=== PATIENT | male | born 1970 | race Caucasian/White ===

== ENCOUNTER 2022-05-26 14:54 | Emergency (ER) | payer MEDICAID, SELFPAY ==
[2022-05-26 15:10] VITALS: BP 176/106; PULSE 91; RESP 24; TEMP 36.8; O2SAT 99; BMI 25.8
--- NOTE | 2022-05-26 15:11 | ED_ITS ---
HPI - General Adult General: Chief complaint: General Medical Stated complaint: DELIRIUM TREMORS/ SPIDER BITE Time Seen by Provider: 05/26/22 15:10 History of Present Illness: Mr. Holland is a 51-year-old gentleman with unclear past medical history presents to the emergency department due to generalized medical complaint. He endorses 4 days ago taking a preloaded combination shot of drugs and essentially since that time describes having a bad narcotic trip . Additionally he notes a painful leg abscess of unclear timing. Overall course of symptoms has persisted. History is otherwise limited by patient's current level of distress and mental state. Onset (ago): day(s) Severity: severe Pain Consistency: constant Review of Systems General: Reports: 10 or more systems reviewed and unremarkable except in HPI and below PFSH ED PFSH: Medical History (Updated 06/07/22 @ 21:46 by Sumanth Iqbal MD) No significant past medical history Surgical History (Updated 06/07/22 @ 21:46 by Sumanth Iqbal MD) No significant past surgical history Social History (Updated 06/07/22 @ 21:46 by Sumanth Iqbal MD) Substance/Drug Use: current Physical Exam 2 Const: COMMON NORMALS: alert GENERAL APPEARANCE: cooperative, well developed, in distress (uncomfortable, difficulty remaining still) and anxious HENMT: COMMON NORMALS: normocephalic and atraumatic HEAD & SCALP: normocephalic and atraumatic Eye: COMMON NORMALS: conjunctivae normal CONJUNCTIVA: Yes conjunctivae normal SCLERA: sclerae normal Neck/C-Spine: COMMON NORMALS: supple GENERAL: Yes trachea midline Resp: COMMON NORMALS: normal respiratory effort and clear to auscultation bilaterally EFFORT & INSPECTION: Yes able to speak in complete sentences AUSCULTATION: clear to auscultation bilaterally Cardio: COMMON NORMALS: regular rate and regular rhythm RATE: regular rate RHYTHM: regular rhythm GI: COMMON NORMALS: Soft to palpation PALPATION: Yes Soft to palpation and No Tenderness to palpation present (GI) Extremity: NARRATIVE EXTREMITY EXAM: Prior surgical scars left lower extremity, distal CMS intact. GENERAL: Yes normal exam except as noted and No edema Neuro: COMMON NORMALS: moves all extremities SENSORIUM/ORIENTATION: Yes alert and No Orientation impaired Psych: COMMON NORMALS: denies homicidal ideation and denies suicidal ideation ACTIVITY/MOTOR BEHAVIOR: Yes psychomotor agitation and Yes hyperactivity Skin: NARRATIVE SKIN EXAM: Bilateral 2 cm isolation appearing to be erythematous and tender to palpation without significant fluctuance. Course ED course: - Patient was seen and evaluated by me at bedside - Patient placed on cardiac monitors, IV access obtained - Initial evaluation notable for exam as above - Labs and xrays personally interpreted by me. EKG shows a sinus rhythm, no STEMI. -Versed and antipsychotic ordered. - Labs notable for leukocytosis, normal hemoglobin. Metabolic panel without acute derangement to explain symptoms. Alcohol, salicylate, acetaminophen level negative. - Imaging notable for prior surgical clips, patient has known history of fasciotomy/multiple leg surgeries. No acute bony abnormality. [id number]-[id number] ultrasound performed with small phlegmon appearance, no appreciable large drainable fluid collection. - Upon serial reexamination after treatment the patient was markedly improved. Antibiotic ordered and patient's gabapentin ordered. - Based on patient history, evaluation, and testing as interpreted the most likely cause of the patient's condition is acute drug reaction and skin lesion - The results of ED evaluation were discussed with the patient including prescriptions and/or symptomatic cares (if applicable) including appropriate and responsible use, followup plan, and return precautions. The patient verbalized understanding and felt safe for discharge. - Patient discharged in satisfactory condition. Note: Click bubbles or prepopulated chappell in note writing are used for assistance with data collection and billing and are inherently more limited than narrative and other text portions of this note. Please use narrative for additional clinical history and defer to narrative/free test for any case of contradictory information. If information appears in only free text or click bubble it should be considered present or absent as reported. Please contact note personal lines underwriter for clarifications of clinical information or contradictory information. MDM is a brief summary, contradictory or erroneous seeming information should be clarified and full note should be reviewed. Vital Signs: Vital signs: Vital Signs Temperature 98.3 F 05/26/22 15:10 Pulse Rate 58 L 05/26/22 18:16 Respiratory Rate 18 05/26/22 18:16 Blood Pressure 178/109 05/26/22 18:16 Pulse Oximetry 98 05/26/22 18:16 Oxygen Delivery Nh thod 05/26/22 16:27 MDM - General Adult Medical Decision Making 51-year-old male presenting with generalized symptoms in the context of drug use in addition to a concern over skin finding. Patient markedly improved with Versed and Haldol. No drainable fluid collection on [id number]-[id number] ultrasound. Satisfactory for outpatient management. Medical Records I reviewed the patient's medical records. Lab Data I reviewed the patient's lab results. : 05/26/22 15:42 05/26/22 15:42 Radiology Impressions Femur X-Ray 05/26/22 16:17 IMPRESSION: Multiple small linear metallic foreign bodies noted along the lateral aspect of the proximal thigh measuring up to 1 cm with soft tissue swelling in this region. Laboratory Results WBC 11.7 10^3/uL (4.0-10.0) H 05/26/22 15:42 RBC 4.56 10^6/uL (4.1-5.3) 05/26/22 15:42 Hgb 14.0 g/dL (11.7-16.6) 05/26/22 15:42 Hct 40.4 % (42.0-52.0) L 05/26/22 15:42 MCV 88.6 fl (80-94) 05/26/22 15:42 MCH 30.7 pg (28.0-34.0) 05/26/22 15:42 MCHC 34.7 g/dL (30.0-36.0) 05/26/22 15:42 RDW 13.5 % (12.1-15.1) 05/26/22 15:42 Plt Count 314 10^3/cmm (130-400) 05/26/22 15:42 MPV 9.9 fL (7.4-10.4) 05/26/22 15:42 Neut % (Auto) 68.6 % 05/26/22 15:42 Lymph % (Auto) 19.9 % 05/26/22 15:42 Duchesne % (Auto) 10.1 % 05/26/22 15:42 Eos % (Auto) 0.3 % 05/26/22 15:42 Baso % (Auto) 0.5 % 05/26/22 15:42 Neut # (Auto) 7.99 10^3/uL (1.8-7.7) H 05/26/22 15:42 Lymph # (Auto) 2.3 10^3/uL (0.8-4.8) 05/26/22 15:42 Duchesne # (Auto) 1.2 10^3/uL (0.2-0.9) H 05/26/22 15:42 Eos # (Auto) 0.0 10^3/uL (0.0-0.8) 05/26/22 15:42 Baso # (Auto) 0.1 10^3/uL (0.0-0.1) 05/26/22 15:42 Nucleated RBC % (auto) 0 % 05/26/22 15:42 Nucleated RBCs # 0.0 /100WBC 05/26/22 15:42 Sodium 139 mmol/L (136-145) 05/26/22 15:42 Potassium 3.5 mmol/L (3.5-5.1) 05/26/22 15:42 Chloride 102 mmol/L (98-107) 05/26/22 15:42 Carbon Dioxide 22 mmol/L (22-29) 05/26/22 15:42 Anion Gap 18.5 (5-19) 05/26/22 15:42 BUN 7 mg/dL (6-20) 05/26/22 15:42 Creatinine 0.8 mg/dL (0.7-1.2) 05/26/22 15:42 GFR Calculation 101.5 mL/min (90-130) 05/26/22 15:42 Glucose 93 mg/dL (65-115) 05/26/22 15:42 Calculated Osmolality 286 mOsm/kg (285-295) 05/26/22 15:42 Calcium 9.7 mg/dL (8.5-10.5) 05/26/22 15:42 Total Bilirubin 0.3 mg/dL (0.15-1.2) 05/26/22 15:42 AST 35 U/L (0-40) 05/26/22 15:42 ALT 61 U/L (0-41) H 05/26/22 15:42 Alkaline Phosphatase 96 U/L (40-130) 05/26/22 15:42 Total Protein 7.3 g/dL (6.6-8.7) 05/26/22 15:42 Albumin 4.5 g/dL (3.5-5.2) 05/26/22 15:42 Globulin 2.8 g/dL (1.3-4.6) 05/26/22 15:42 TSH 2.02 uIU/mL (0.27-4.20) 05/26/22 15:42 Salicylates < 0.3 mg/dL (3-10) L 05/26/22 15:42 Urine Opiates Screen Positive ng/mL (Negative) H 05/26/22 16:28 Acetaminophen < 5.0 ug/mL (10-30) L 05/26/22 15:42 Ur Barbiturates Screen Negative ng/mL (Negative) 05/26/22 16:28 Ur Phencyclidine Scrn Negative ng/mL (Negative) 05/26/22 16:28 Ur Amphetamines Screen Negative ng/mL (Negative) 05/26/22 16:28 U Benzodiazepines Scrn Positive ng/mL (Negative) H 05/26/22 16:28 Urine Cocaine Screen Negative ng/mL (Negative) 05/26/22 16:28 U Marijuana (THC) Screen Positive ng/mL (Negative) H 05/26/22 16:28 Ethyl Alcohol < 10 mg/dL (0-10) 05/26/22 15:42 Discharge Plan Discharge Patient Disposition: Home Clinical Impression: Substance abuse, Cellulitis and abscess of left leg Condition: Stable Prescriptions: Continued Prozac 40 mg Capsule 80 mg PO DAILY 30 Days Qty: 60 0RF Protonix 20 mg Tablet,Delayed Release (Dr/Ec) 20 mg PO BID 30 Days Qty: 60 0RF Flomax 0.4 mg Capsule 0.4 mg PO DAILY 30 Days Qty: 30 0RF gabapentin 800 mg Tablet 800 mg PO TID 30 Days Qty: 90 0RF hydrochlorothiazide 25 mg Tablet 25 mg PO DAILY 30 Days Qty: 30 0RF lisinopril 40 mg Tablet 40 mg PO DAILY 30 Days Qty: 30 0RF Seroquel XR 50 mg Tablet Extended Release 24 Hr 50 mg PO DAILY 30 Days Qty: 30 0RF No Action Robaxin 500 mg Tablet 1,000 mg PO QID PRN (Reason: Pain) Vitamin D2 1,250 mcg (50,000 unit) Capsule 50,000 unit PO Q7D oxycodone 10 mg Tablet 10 mg PO TID PRN (Reason: Pain) Discharge Orders: Discharge ED (Routine); Ordered 05/26/22 Ordered By: Sumanth Iqbal Discharge Diet: Usual diet Discharge Activity: Increase activity as tolerated Patient Instructions: Cellulitis (ED), Polysubstance Use Disorder (ED) Activity Restrictions/Additional Instructions: Thank you for visiting the emergency department. You were seen and evaluated f or adverse drug reaction and skin lesion. We are pleased that you had improvement with treatment. I do not see a drainable fluid collection however you do have evidence of infection which will be treated with antibiotics. Additionally I will refill prescriptions. Please follow-up and establish with a primary care provider and psychiatric care provider. Please stop abusing drugs, failure to stop abusing drugs will likely lead to or worse. Return to the emergency department for worsening symptoms or anything else that you are concerned about and feel needs emergency department evaluation. Coding Level of Care Code ED Clinical Nurse Educator for Akbar Quevedo
[2022-05-26] MEDS: haloperidol inj 5 mg/mL INJ 1 mL 2 MG IVP (15:32)
[2022-05-26] MEDS: midazolam 1 mg/mL INJ 2 mL 2 MG IM (15:33)
[2022-05-26 15:52] LABS: Basophils # 0.1 10^3/uL (0.0-0.1); Basophils % 0.5 %; Eosinophils % 0.3 %; Hematocrit 40.4 % (42.0-52.0); Lymphocytes # 2.3 10^3/uL (0.8-4.8); Lymphocytes % 19.9 %; Mean Corpuscular HGB Conc 34.7 g/dL (30.0-36.0); Mean Corpuscular Hemoglobin 30.7 pg (28.0-34.0); Mean Corpuscular Volume 88.6 fl (80-94); Mean Platelet Volume 9.9 fL (7.4-10.4); Monocytes # 1.2 10^3/uL (0.2-0.9); Monocytes % 10.1 %; Neutrophils # 7.99 10^3/uL (1.8-7.7); Neutrophils % 68.6 %; Nucleated Red Blood Cells % 0 %; Platelet Count 314 10^3/cmm (130-400); Red Blood Count 4.56 10^6/uL (4.1-5.3); Red Cell Distribution Width 13.5 % (12.1-15.1); White Blood Count 11.7 10^3/uL (4.0-10.0)
--- NOTE | 2022-05-26 16:17 | XRR_ITS ---
PROCEDURE INFORMATION: Exam: XR Left Femur Exam date and time: 05/26/2022 4:22 PM Age: 51 years old Clinical indication: Other: Delirium after spider bite; Additional info: Distal medial skin lesion, eval foreign body TECHNIQUE: Imaging protocol: Radiologic exam of the Left femur. Views: 2 views. COMPARISON: No relevant prior studies available. FINDINGS: Bones/joints: Unremarkable. No acute fracture. Soft tissues: Multiple small linear metallic foreign bodies noted along the lateral aspect of the proximal thigh measuring up to 1 cm in size. There is focal soft tissue swelling in this region. Multiple surgical clips noted within the medial aspect of both thighs. XR/XR femur LT min 2V* [id number] IMPRESSION: Multiple small linear metallic foreign bodies noted along the lateral aspect of the proximal thigh measuring up to 1 cm with soft tissue swelling in this region.
[2022-05-26 16:27] VITALS: BP 168/98; PULSE 62; O2SAT 99
[2022-05-26 16:27] LABS: Acetaminophen < 5.0 ug/mL (10-30); Alanine Aminotransferase 61 U/L (0-41); Albumin Level 4.5 g/dL (3.5-5.2); Alcohol Level < 10 mg/dL (0-10); Alkaline Phosphatase 96 U/L (40-130); Anion Gap 18.5 (5-19); Aspartate Amino Transferase 35 U/L (0-40); Blood Urea Nitrogen 7 mg/dL (6-20); Calcium 9.7 mg/dL (8.5-10.5); Carbon Dioxide 22 mmol/L (22-29); Chloride 102 mmol/L (98-107); Creatinine Clr Calc Pharmacy 116.8121; Globulin 2.8 g/dL (1.3-4.6); Glomerular Filtration Rate 101.5 mL/min (90-130); Glucose 93 mg/dL (65-115); Osmolality Calculated 286 mOsm/kg (285-295); Potassium 3.5 mmol/L (3.5-5.1); Salicylate < 0.3 mg/dL (3-10); Sodium 139 mmol/L (136-145); Thyroid Stimulating Hormone 2.02 uIU/mL (0.27-4.20); Total Bilirubin 0.3 mg/dL (0.15-1.2); Total Protein 7.3 g/dL (6.6-8.7)
[2022-05-26 16:43] LABS: Amphetamines Screen Urine Negative (Negative); Barbiturates Screen Urine Negative (Negative); Benzodiazepines Screen Urine Positive (Negative); Cocaine Screen Urine Negative (Negative); Opiate Screen Urine Positive (Negative); PCP Screen Urine Negative (Negative); THC Screen Urine Positive (Negative)
[2022-05-26] MEDS: tetanus-dipt-pertussis 0.5 mL SDV IM (17:14)
[2022-05-26 17:30] VITALS: BP 182/112; PULSE 60; RESP 17; O2SAT 98
[2022-05-26] MEDS: clindamycin 150 mg Capsule 300 MG PO (18:07)
[2022-05-26] MEDS: gabapentin 400 mg Capsule 800 MG PO (18:07)
[2022-05-26 18:16] VITALS: BP 178/109; PULSE 58; RESP 18; O2SAT 98
== END 2022-05-26 18:17 | disposition home or self-care (01) ==
PROVIDERS: Emergency Provider Emergency Medicine
DX: F19.10 Other psychoactive substance abuse, uncomplicated (principal); L03.116 Cellulitis of left lower limb; L02.416 Cutaneous abscess of left lower limb; Z23 Encounter for immunization
CPT/HCPCS: 73552; 80053; 80306; 80307; 84443; 85025; 90471; 90715; 96372; 96374; 99284; J1630; J2250